=== PATIENT | female | born 1975 | race Caucasian/White ===

== ENCOUNTER → 2020-06-07 | Outpatient (CLI) | payer OTHER | LOC: M RAD 14:56 | PROVIDERS: ATTEND Physician Assistant | DX: S63.92XD Sprain of unspecified part of left wrist and hand, subsequent encounter (principal); Y92.9 Unspecified place or not applicable; Y93.9 Activity, unspecified; Y99.9 Unspecified external cause status ==

== ENCOUNTER → 2020-08-12 | Outpatient (REF) | payer OTHER | LOC: M PLALAB 15:15 | PROVIDERS: ATTEND Nurse Practitioner Family | DX: R06.02 Shortness of breath (principal); R07.89 Other chest pain ==

== ENCOUNTER 2022-12-23 13:44 | Emergency (ER) | payer BC, OTHER ==
[~2022-12-23] VITALS: Ht 162.6 cm; Wt 76.4 kg
[2022-12-23] MEDS ORDERED: PROP20TA72 (14:03)
[2022-12-23] MEDS ORDERED: ACET500C10 (14:03)
[2022-12-23] MEDS ORDERED: ELIQ5TAB (14:03)
[2022-12-23] MEDS ORDERED: METH2.5T48 (14:03)
[2022-12-23] MEDS ORDERED: HUMI40IN2 (14:03)
[2022-12-23] MEDS ORDERED: FOLI1TAB11 (14:03)
[2022-12-23] MEDS ORDERED: HYDR200T46 (14:03)
[2022-12-23] MEDS ORDERED: ONDA-83 (14:03)
[2022-12-23] MEDS ORDERED: NADO20TA PO (14:03)
[2022-12-23] MEDS ORDERED: AMLO1TAB24 (14:03)
[2022-12-23 14:24] LABS: BASO # 0.1 10^3/uL (0.0-0.2); BASO % 0.8 % (0.0-1.0); EOS # 0.2 10^3/uL (0.0-0.5); EOS % 2.2 % (0.0-3.0); HEMATOCRIT 43.6 % (36.0-47.0); HEMOGLOBIN 14.7 g/dl (12.0-15.5); LYMPH # 2.6 10^3/uL (1.5-5.0); LYMPH % 29.6 % (24.0-44.0); MEAN CORPUSCULAR HEMOGLOBIN 32.3 pg (27.0-33.0); MEAN CORPUSCULAR HGB CONC 33.7 g/dl (32.0-36.5); MEAN CORPUSCULAR VOLUME 95.8 fl (80.0-96.0); MONO # 0.5 10^3/uL (0.0-0.8); MONO % 5.9 % (2.0-8.0); NEUTROPHILS # 5.4 10^3/uL (1.5-8.5); NEUTROPHILS % 61.2 % (36.0-66.0); PLATELET COUNT, AUTOMATED 354 10^3/uL (150-450); RED BLOOD COUNT 4.55 10^6/uL (4.00-5.40); WHITE BLOOD COUNT 8.8 10^3/uL (4.0-10.0)
[2022-12-23 14:37] LABS: INR 1.15; PROTHROMBIN TIME 14.4 SECONDS (12.5-14.5)
[2022-12-23 14:38] LABS: PARTIAL THROMBOPLASTIN TIME 29.5 SECONDS (24.8-34.2)
[2022-12-23 14:55] LABS: CK-MB VALUE MASS < 1.0 NG/ML (<3.6)
[2022-12-23 14:56] LABS: ETHYL ALCOHOL (ETHANOL) < 0.003 % (0.000-0.010)
[2022-12-23 14:57] LABS: CPK CREATINE PHOSPHOKINASE 79 U/L (34-145); MB/CK RELATIVE INDEX 1.26 (< OR =4)
[2022-12-23 14:58] LABS: ALBUMIN 3.8 G/DL (3.2-5.2); ALKALINE PHOSPHATASE 73 U/L (46-116); ALT/SGPT 21 U/L (7.0-40); AST/SGOT 14 U/L (<34); BILIRUBIN,DIRECT 0.2 MG/DL (<0.4); BILIRUBIN,TOTAL 0.5 MG/DL (0.3-1.2); BLOOD UREA NITROGEN 7 MG/DL (9-23); CALCIUM LEVEL 9.2 MG/DL (8.5-10.1); CARBON DIOXIDE LEVEL 26 MMOL/L (20-31); CHLORIDE LEVEL 107 MMOL/L (98-107); CREATININE FOR GFR 0.67 MG/DL (0.55-1.30); GLOMERULAR FILTRATION RATE > 60.0 (>58); GLUCOSE, FASTING 99 MG/DL (60-100); MAGNESIUM LEVEL 1.9 MG/DL (1.8-2.4); POTASSIUM SERUM 3.9 MMOL/L (3.5-5.1); SODIUM LEVEL 143 MMOL/L (136-145); TOTAL PROTEIN 6.9 G/DL (5.7-8.2)
[2022-12-23 14:59] LABS: FREE T4 1.12 NG/DL (0.89-1.76); THYROID STIMULATING HORMONE 0.614 uIU/ML (0.55-4.78)
[2022-12-23 15:18] LABS: AMPHETAMINES LEVEL URINE NEGATIVE (NEGATIVE); BARBITURATES URINE NEGATIVE (NEGATIVE)
[2022-12-23 15:19] LABS: BENZODIAZEPINES URINE NEGATIVE (NEGATIVE); CANNABINOIDS URINE NEGATIVE (NEGATIVE); COCAINE METABOLITE URINE NEGATIVE (NEGATIVE); METHADONE URINE NEGATIVE (NEGATIVE); OPIATES URINE NEGATIVE (NEGATIVE); PHENCYCLIDINE URINE NEGATIVE (NEGATIVE)
[2022-12-23 16:15] VITALS: BP 139/77; O2SAT 100
[2022-12-23 16:30] LABS: CK-MB VALUE MASS < 1.0 NG/ML (<3.6); CPK CREATINE PHOSPHOKINASE 65 U/L (34-145); MB/CK RELATIVE INDEX 1.53 (< OR =4)
[2022-12-23 16:36] VITALS: TEMP 97.9
== END 2022-12-23 16:41 | disposition home or self-care (01) ==
LOC: EDBD 13:44 → EDSEX 13:44 → M ED 13:44
DX: I47.10 Supraventricular tachycardia, unspecified (principal); I48.91 Unspecified atrial fibrillation; I25.10 Atherosclerotic heart disease of native coronary artery without angina pectoris; Z79.01 Long term (current) use of anticoagulants; Z79.899 Other long term (current) drug therapy; Z88.0 Allergy status to penicillin; Z88.1 Allergy status to other antibiotic agents